=== PATIENT | male | born 1985 | race Caucasian/White ===

== ENCOUNTER 2023-07-08 17:23 | Emergency (ER) | payer OTHER ==
[~2023-07-08] VITALS: Ht 162.6 cm; Wt 66.2 kg
[2023-07-08 17:26] VITALS: BP 132/74; PULSE 78; RESP 18; TEMP 98.4; O2SAT 98
[2023-07-08] MEDS ORDERED: CRUSHER, PILL MC ONE (17:59)
[2023-07-08] MEDS: LORazepam 0.5 MG TAB PO ONE (18:02)
[2023-07-08 18:05] VITALS: O2SAT 98
[2023-07-08 18:19] LABS: FLU A ANTIGEN negative (NEGATIVE); FLU B ANTIGEN NEGATIVE (NEGATIVE)
[2023-07-08] MEDS ORDERED: ALBUTEROL SULFATE/IPRATROPIU 3 ML SOL IH ONE (18:54)
[2023-07-08] MEDS: ALBUTEROL SULFATE/IPRATROPIU 3 ML SOL IH ONE (18:59)
[2023-07-08] MEDS ORDERED: SUD30 PO (19:13)
[2023-07-08] MEDS ORDERED: ALBU0.0912 INH (19:13)
[2023-07-08] MEDS ORDERED: PRED20TA5 PO (19:13)
[2023-07-08] MEDS ORDERED: BENZ200C4 PO (19:13)
[2023-07-08] MEDS ORDERED: MUC600 PO (19:13)
[2023-07-08 20:37] VITALS: PULSE 71; RESP 22; O2SAT 98
[2023-07-08 20:42] VITALS: PULSE 71; RESP 22; O2SAT 98
== END 2023-07-08 20:20 | disposition home or self-care (01) ==
LOC: EDBD 17:23 → MED 17:23
DX: J45.901 Unspecified asthma with (acute) exacerbation (principal); Z20.822 Contact with and (suspected) exposure to COVID-19; F41.9 Anxiety disorder, unspecified; I10 Essential (primary) hypertension; Z88.8 Allergy status to other drugs, medicaments and biological substances; Z79.899 Other long term (current) drug therapy
CPT/HCPCS: 71045; 87426; 87804; 94640; 99284; Q0092